=== PATIENT | female | born 1970 | race Two or more races ===

== ENCOUNTER 2021-07-17 09:00 | Outpatient (CLI) | payer OTHER ==
[~2021-07-17 09:00] MED LIST: LITHIUM CARBON300 MG
== END 2021-07-17 09:15 | disposition home or self-care (01) ==
LOC: PPH VACUNA 09:00
PROVIDERS: ATTEND Emergency Medicine Pediatric Emergency Medicine
DX: Z23 Encounter for immunization (principal)